=== PATIENT | male | born 1940 | race Caucasian/White ===

== ENCOUNTER 2018-04-08 12:54 | Inpatient (IN) | payer MEDICARE ==
[~2018-04-08] VITALS: Ht 172.7 cm; Wt 87.0 kg
[2018-04-08] MEDS ORDERED: ASPIRIN 81 MG TABLET CHEW PO ONE (13:30)
[2018-04-08 13:33] LABS: BASOPHILS # (AUTO) 0.02 x10^3/uL (0-0.1); BASOPHILS % (AUTO) 0 % (0-1); EOSINOPHILS # (AUTO) 0.43 x10^3/uL (0-0.4); EOSINOPHILS % (AUTO) 6 % (1-7); LYMPHOCYTES # (AUTO) 1.62 x10^3/uL (1-3.4); LYMPHOCYTES % (AUTO) 21 % (22-44); MD NO; MEAN CORPUSCULAR HEMOGLOBIN 33.5 pg (27.5-34.5); MEAN CORPUSCULAR HGB CONC 34.4 g/dL (33.2-36.2); MEAN CORPUSCULAR VOLUME 97.4 fL (81-97); MEAN PLATELET VOLUME 7.3 fL (7.4-10.4); MONOCYTES % (AUTO) 8 % (2-9); NEUTROPHILS # (AUTO) 4.91 x10^3/uL (1.8-6.8); NEUTROPHILS % (AUTO) 65 % (42-75); PLATELET COUNT 185 x10^3/uL (130-400); RED BLOOD COUNT 5.22 x10^6/uL (4.38-5.82); RED CELL DISTRIBUTION WIDTH 13.4 % (9.4-14.8)
[2018-04-08 13:45] LABS: ALBUMIN 4.2 g/dL (3.4-5.0); ANION GAP 6 mmol/L (5-15); CALCIUM 9.8 mg/dL (8.5-10.1); CHLORIDE 104 mmol/L (98-107)
[2018-04-08] MEDS ORDERED: SODIUM CHLORIDE FLUSH 10ML SYR IVF ONE (14:00)
--- NOTE | 2018-04-08 14:00 | NUR ---
TO ED ROOM 30 PER WC. PT WAS EATING WHILE IN WAITING ROOM. DR GONZÁLES AT FOR EXAM. PT A&OX4, RESP EVEN, REPORTS SOME SOB, SPEECH CLEAR, SKIN WNL. PT NOTIFIED OF NPO STATUS. PT'S SON IN ROOM.
[2018-04-08] MEDS ORDERED: HEPARIN 5,000 UNITS/ML, 1ML ONE (14:24)
[2018-04-08] MEDS ORDERED: ASPIRIN 81 MG TABLET CHEW ONE (14:25)
[2018-04-08] MEDS ORDERED: HEPARIN 5,000 UNITS/ML, 1ML IV PRN (14:30)
[2018-04-08] MEDS ORDERED: HEPARIN 25,000 UNITS/500ML PMX 500 ML IV PRN (14:30)
[2018-04-08] MEDS ORDERED: NITROGLYCERIN OINT 2%, 1GM TP ONE ×2 (14:30→15:16)
[2018-04-08] MEDS ORDERED: HEPARIN 5,000 UNITS/ML, 1ML IV ONE (14:30)
--- NOTE | 2018-04-08 14:30 | NUR ---
TWO ORDERS FOR HEPARIN BOLUS; WILL CONSULT DR GONZÁLES.
--- NOTE | 2018-04-08 14:45 | NUR ---
DR GONZÁLES NOTIFIED OF CURRENT BP (158/67). VO: 1/2 INCH NITRO PASTE (INSTEAD OF 1 INCH). PHARMACY TO DOSE HEPARIN.
[2018-04-08] MEDS ORDERED: NS + 20MEQ KCL 1,000 ML IV SCH (14:50)
[2018-04-08] MEDS ORDERED: ACETAMINOPHEN 325 MG TABLET PO PRN (15:00)
[2018-04-08] MEDS ORDERED: DOCUSATE 100 MG CAPSULE PO PRN (15:00)
[2018-04-08] MEDS ORDERED: LABETALOL 5MG/ML, 20ML IVPush PRN (15:00)
[2018-04-08] MEDS ORDERED: POLYETHYLENE GLYCOL 17 GM PACKET PO PRN (15:00)
[2018-04-08] MEDS ORDERED: ONDANSETRON 2MG/ML, 2ML IVPush PRN (15:00)
[2018-04-08] MEDS ORDERED: BISACODYL 10 MG SUPP PR PRN (15:00)
--- NOTE | 2018-04-08 15:04 | NUR ---
CALLED PHARMACY. PER SANTOS, HEPARIN 4000 U BOLUS TO BE GIVEN.
--- NOTE | 2018-04-08 15:19 | NUR ---
DR FONSECA BS TO DISCUSS POC
[2018-04-08 15:25] LABS: INTERNATIONAL NORMALIZED RATIO 1.01 (0.93-1.1); PROTHROMBIN TIME 10.7 Seconds (9.6-11.5)
--- NOTE | 2018-04-08 15:26 | NUR ---
EVA FONSECA: START REGULAR NORMAL SALINE. TIFFANIE HUNG. Addendum: 04/08/18 at [address] FONSECA; STEVE HEPARIN LENORE
[2018-04-08] MEDS ORDERED: MIDAZOLAM 1 MG/ML, 5ML ONE (15:37)
[2018-04-08] MEDS ORDERED: BIVALIRUDIN 250 MG ONE (15:38)
[2018-04-08] MEDS ORDERED: HEPARIN 1,000 UNITS/ML, 10ML ONE (15:38)
[2018-04-08] MEDS ORDERED: FENTANYL PF 100 MCG/2ML ONE ×2 (15:38→16:33)
[2018-04-08] MEDS ORDERED: TICAGRELOR 90 MG TABLET ONE (15:38)
[2018-04-08] MEDS ORDERED: VERAPAMIL 2.5 MG/ML, 2ML ONE (15:38)
--- NOTE | 2018-04-08 15:38 | NUR ---
[facility] CONSENT FORM SIGNED BY PT.
[2018-04-08] MEDS ORDERED: LIDOCAINE-MPF 2%, 2ML ONE (15:39)
[2018-04-08] MEDS ORDERED: ASPI-496 PO (15:43)
[2018-04-08] MEDS ORDERED: LISI-167 PO (15:43)
[2018-04-08] MEDS ORDERED: FELO5TAB PO (15:43)
[2018-04-08] MEDS ORDERED: METO25TA35 PO (15:43)
[2018-04-08] MEDS ORDERED: NITROGLYCERIN (15:43)
[2018-04-08] MEDS ORDERED: ALLO300T PO ×2 (15:43)
[2018-04-08] MEDS ORDERED: CHLO25TA PO (15:43)
--- NOTE | 2018-04-08 15:43 | NUR ---
REINFORCING ROD LAYER RN'S HERE FOR TRANSPORT
[2018-04-08] MEDS ORDERED: LIDOCAINE 1%, 20ML ONE (16:33)
[2018-04-08] MEDS ORDERED: SODIUM CHLORIDE 0.9% 1,000 ML IV SCH (17:27)
[2018-04-08] MEDS ORDERED: BIVALIRUDIN 250 MG in DEXTROSE 5% 100 ML IV SCH (17:27)
[2018-04-08] MEDS ORDERED: BIVALIRUDIN 250 MG in DEXTROSE 5% 50 ML IV SCH (19:30)
[2018-04-08 20:29] VITALS: BP 128/77
[2018-04-08] MEDS: TICAGRELOR 90 MG TABLET PO SCH (20:56)
[2018-04-08] MEDS ORDERED: ROPINIROLE 0.25MG TABLET PO SCH (21:00)
[2018-04-08] MEDS ORDERED: ATORVASTATIN 40 MG TABLET PO SCH (21:00)
[2018-04-09 02:45] VITALS: BP 138/64
[2018-04-09 05:36] LABS: BASOPHILS # (AUTO) 0.02 x10^3/uL (0-0.1); BASOPHILS % (AUTO) 0 % (0-1); EOSINOPHILS # (AUTO) 0.37 x10^3/uL (0-0.4); EOSINOPHILS % (AUTO) 5 % (1-7); LYMPHOCYTES # (AUTO) 1.46 x10^3/uL (1-3.4); LYMPHOCYTES % (AUTO) 21 % (22-44); MD NO; MEAN CORPUSCULAR HEMOGLOBIN 33.6 pg (27.5-34.5); MEAN CORPUSCULAR HGB CONC 34.8 g/dL (33.2-36.2); MEAN CORPUSCULAR VOLUME 96.4 fL (81-97); MEAN PLATELET VOLUME 7.6 fL (7.4-10.4); MONOCYTES # (AUTO) 0.55 x10^3/uL (0.2-0.8); MONOCYTES % (AUTO) 8 % (2-9); NEUTROPHILS # (AUTO) 4.51 x10^3/uL (1.8-6.8); NEUTROPHILS % (AUTO) 65 % (42-75); PLATELET COUNT 149 x10^3/uL (130-400); RED BLOOD COUNT 4.35 x10^6/uL (4.38-5.82); RED CELL DISTRIBUTION WIDTH 13.4 % (9.4-14.8)
[2018-04-09 05:47] LABS: CHLORIDE 109 mmol/L (98-107)
[2018-04-09 05:54] LABS: ANION GAP 9 mmol/L (5-15); CALCIUM 9.1 mg/dL (8.5-10.1); CHOL/HDL RATIO 5.4; CHOLESTEROL, TOTAL 178 mg/dL (140-239); CREATININE 1.21 mg/dL (0.7-1.3); HDL CHOL % 19 % (26-37); HDL CHOLESTEROL (DIRECT) 33 mg/dL (40-60); LDL CHOLESTEROL,CALCULATED 85 mg/dL (54-169); LDL/HDL RATIO 2.6 (0.5-3.0); TRIGLYCERIDES 301 mg/dL (50-200); VLDL CHOLESTEROL 60 mg/dL (0-25)
[2018-04-09] MEDS ORDERED: ASPIRIN 81 MG TABLET EC PO SCH (06:00)
[2018-04-09 06:51] VITALS: BP 136/80
[2018-04-09] MEDS: TICAGRELOR 90 MG TABLET PO SCH (09:00)
[2018-04-09 14:02] VITALS: BP 169/79
[2018-04-09] MEDS ORDERED: SODIUM CHLORIDE 0.9% 1,000ML IVBOLUS ONE (16:30)
[2018-04-09] MEDS ORDERED: OMNIPAQUE 350 MG/ML, 75ML BOTTLE ONE (16:56)
[2018-04-09] MEDS ORDERED: METO25TA91 PO (17:28)
[2018-04-09] MEDS ORDERED: TICA90TA PO (17:28)
[2018-04-09] MEDS ORDERED: ATOR-2 PO (17:28)
[2018-04-09] MEDS ORDERED: ATORVASTATIN 80 MG TABLET PO SCH (21:00)
[2018-04-09] MEDS ORDERED: METOPROLOL SUCCINATE 25 MG TAB.ER.24H PO SCH (21:00)
== END 2018-04-09 18:43 | disposition home or self-care (01) | DRG 246 ==
LOC: ED 14:49 → EDIP 14:50 → ED 16:34 → 5SO 17:15
PROVIDERS: ADMIT Hospitalist; ATTEND Hospitalist
PROC: 4A023N7 Measurement of Cardiac Sampling and Pressure, Left Heart, Percutaneous Approach (ICD-10-PCS; principal; 2018-04-08)
PROC: 027034Z Dilation of Coronary Artery, One Artery with Drug-eluting Intraluminal Device, Percutaneous Approach (ICD-10-PCS; 2018-04-08)
PROC: B2111ZZ Fluoroscopy of Multiple Coronary Arteries using Low Osmolar Contrast (ICD-10-PCS; 2018-04-08)
PROC: B2151ZZ Fluoroscopy of Left Heart using Low Osmolar Contrast (ICD-10-PCS; 2018-04-08)
DX: T82.855A Stenosis of coronary artery stent, initial encounter (principal); I21.4 Non-ST elevation (NSTEMI) myocardial infarction; E78.5 Hyperlipidemia, unspecified; G47.33 Obstructive sleep apnea (adult) (pediatric); I11.9 Hypertensive heart disease without heart failure; I25.10 Atherosclerotic heart disease of native coronary artery without angina pectoris; R22.2 Localized swelling, mass and lump, trunk; Y83.8 Other surgical procedures as the cause of abnormal reaction of the patient, or of later complication, without mention of misadventure at the time of the procedure; Y92.89 Other specified places as the place of occurrence of the external cause; Z87.891 Personal history of nicotine dependence; Z95.5 Presence of coronary angioplasty implant and graft; Z90.49 Acquired absence of other specified parts of digestive tract
CPT/HCPCS: 36415; 71046; 71260; 76604; 80048; 80061; 82040; 83880; 84484; 85025; 85520; 85610; 93005; 93306; 93458; 99156; 99157; C1760; C1769; C1894; C9600; G0378; J0583; J1644; J2250; J3010; J3480; J3490; Q9967; C1725; C1874; C1887

== ENCOUNTER 2019-06-25 12:25 | Outpatient (CLI) | payer MEDICARE ==
[~2019-06-25 12:25] MED LIST: ALLO300T PO; ASPI-496 PO; ATOR-2 PO; CHLO25TA PO; FELO5TAB4 PO; LISI-167 PO; METO25TA35 PO; METO25TA91 PO; NITROGLYCERIN; TICA90TA PO
[2019-06-25 13:55] LABS: ANION GAP 5 mmol/L (5-15); CALCIUM 8.8 mg/dL (8.5-10.1); CHLORIDE 108 mmol/L (98-107); CREATININE 1.38 mg/dL (0.7-1.3)
== END 2019-06-25 23:59 | disposition home or self-care (01) ==
LOC: CVU 12:25
PROVIDERS: ATTEND Internal Medicine Cardiovascular Disease
DX: I65.23 Occlusion and stenosis of bilateral carotid arteries (principal); E78.5 Hyperlipidemia, unspecified; I10 Essential (primary) hypertension; I25.10 Atherosclerotic heart disease of native coronary artery without angina pectoris; R09.89 Other specified symptoms and signs involving the circulatory and respiratory systems; R79.89 Other specified abnormal findings of blood chemistry
CPT/HCPCS: 36415; 80048; 93880

== ENCOUNTER 2020-06-22 14:15 | Outpatient (CLI) | payer MEDICARE | END 2020-06-22 23:59 | disposition home or self-care (01) | LOC: CVU 14:15 | PROVIDERS: ATTEND Internal Medicine Cardiovascular Disease | DX: I08.0 Rheumatic disorders of both mitral and aortic valves (principal); I65.23 Occlusion and stenosis of bilateral carotid arteries; R09.89 Other specified symptoms and signs involving the circulatory and respiratory systems; I25.10 Atherosclerotic heart disease of native coronary artery without angina pectoris | CPT/HCPCS: 93306; 93356; 93880 ==